=== PATIENT | female | born 1945 | race Hispanic/Latino ===

== ENCOUNTER 2018-05-24 16:16 | Inpatient (IN) | payer MEDICARE ==
[2018-05-24] MEDS ORDERED: Magnesium Hydroxide Susp 30 ml UD PO PRN (17:15)
[2018-05-24 19:05] VITALS: BMI 27.4
[2018-05-24] MEDS ORDERED: Pneumococcal 23-Valent Vaccine IM ONE (19:05)
[2018-05-25 07:53] LABS: MEAN CELL VOLUME 84.8 fl (80.0-105.0); MEAN CORPUSCULAR HEMOGLOBIN 27.8 pg (25.0-35.0); MEAN CORPUSCULAR HGB CONC 32.8 g/dl (31.0-37.0); MEAN PLATELET VOLUME 10.2 fl (7.0-11.0); RBC 3.95 10^6/uL (3.5-6.1); RED CELL DISTRIBUTION WIDTH 14.2 % (11.5-14.5); WHITE BLOOD COUNT 8.8 10^3/ul (4.5-11.0)
[2018-05-25 08:02] LABS: ALB/GLOB RATIO 1.1 (1.1-1.8); ALBUMIN 3.7 g/dL (3.0-4.8); ALT/SGPT 31 U/L (7-56); AST/SGOT 24 U/L (14-36); BLOOD UREA NITROGEN 20 mg/dL (7-21); GFR NON-AFRICAN AMERICAN > 60
--- NOTE | 2018-05-25 12:01 | CP.PCM.HP ---
<Rian Mcgarry - Last Filed: 05/25/18 11:58> History of Present Illness - History of Present Illness History of Present Illness: History and Physical for Dr. Hicks 72 year old female with past medical history of HTN presents from [facility] for physical therapy due to deconditioning. Patient recently had back surgery and will require physical therapy. At this time, patient states she feels minimal pain, but does have trouble ambulating. Patient denies chest pain, shortness of breath, nausea, vomiting, diarrhea, fever, chills, dysuria. PMH: As above Surgical Hx: Knee replacement, back surgery Family Hx: HTN Social Hx: Denies alcohol, tobacco, or illicit drug use Allergies: NKDA Meds: Reviewed, as per MAR Present on Admission - Present on Admission Any Indicators Present on Admission: No Review of Systems - Review of Systems Review of Systems: 12 point ROS as per HPI, otherwise negative Past Patient History - CARDIAC Hx Hypertension: Yes - PULMONARY Hx Respiratory Disorders: No - NEUROLOGICAL Hx Neurological Disorder: Yes (numbness left leg more than right) - HEENT Hx HEENT Problems: Yes Hx Cataracts: Yes (b/l cataract sx) - RENAL Hx Chronic Kidney Disease: No - ENDOCRINE/METABOLIC Hx Endocrine Disorders: No - HEMATOLOGICAL/ONCOLOGICAL Hx Blood Disorders: No - INTEGUMENTARY Hx Dermatological Problems: Yes Other/Comment: surgical incision to lowr back covered with dressing - MUSCULOSKELETAL/RHEUMATOLOGICAL Hx Arthritis: Yes (fingers and spine) - GASTROINTESTINAL Hx Gastrointestinal Disorders: Yes (bm since 05/18/18) - GENITOURINARY/GYNECOLOGICAL Hx Genitourinary Disorders: No - SURGICAL HISTORY Hx Surgeries: Yes Hx Hysterectomy: Yes (35 yrs ago) Hx Joint Replacement: Yes (b/l knee replacement) Other/Comment: decompressive laminectomy from L1 to S1 at [facility] dr barrientos Meds Allergies/Adverse Reactions: Allergies Allergy/AdvReac Type Severity Reaction Status Date / Time No Known Allergies Allergy Verified 07/10/15 10:58 Physical Exam - Constitutional Appears: Non-toxic, No Acute Distress - Head Exam Head Exam: ATRAUMATIC, NORMAL INSPECTION, NORMOCEPHALIC - Eye Exam Eye Exam: EOMI, Normal appearance - ENT Exam ENT Exam: Mucous Membranes Moist - Respiratory Exam Respiratory Exam: Clear to Auscultation Bilateral, NORMAL BREATHING PATTERN - Cardiovascular Exam Cardiovascular Exam: RRR, +S1, +S2 - GI/Abdominal Exam GI & Abdominal Exam: Normal Bowel Sounds, Soft. absent: Tenderness - Extremities Exam Extremities exam: Positive for: normal inspection - Neurological Exam Neurological exam: Alert, CN II-XII Intact, Oriented x3 - Psychiatric Exam Psychiatric exam: Normal Affect, Normal Mood - Skin Skin Exam: Intact, Normal Color, Warm Results - Vital Signs Recent Vital Signs: Last Vital Signs Temp 98.1 F 05/25/18 10:00 Pulse 83 05/25/18 10:00 Resp 18 05/25/18 10:00 BP 162/85 H 05/25/18 10:00 Pulse Ox 93 L 05/25/18 10:00 - Labs Result Diagrams: 05/25/18 07:30 05/25/18 07:30 Labs: Laboratory Results - last 24 hr 05/25/18 05/25/18 07:30 07:30 WBC 8.8 RBC 3.95 Hgb 11.0 L Hct 33.5 L MCV 84.8 MCH 27.8 MCHC 32.8 RDW 14.2 Plt Count 335 MPV 10.2 Sodium 141 Potassium 3.9 Chloride 102 Carbon Dioxide 27 Anion Gap 16 BUN 20 Creatinine 0.6 L Est GFR ( Amer) > 60 Est GFR (Non-Af Amer) > 60 Random Glucose 104 Calcium 9.0 Total Bilirubin 0.4 AST 24 ALT 31 Alkaline Phosphatase 69 Total Protein 7.0 Albumin 3.7 Globulin 3.3 Albumin/Globulin Ratio 1.1 Assessment & Plan - Assessment and Plan (Free Text) Plan: 1. Deconditioning 2. Back Surgery 3. HTN Patient will continue with strict physical therapy program. Patient will be monitored for any severe complications of back surgery. She will have her home medication regimen continued, along with adequate pain control. We will continue to monitor her closely. Malgorzata, PGY-3 <Moose Hicks - Last Filed: 05/25/18 19:42> Results - Vital Signs Recent Vital Signs: Last Vital Signs Temp 97.8 F 05/25/18 16:00 Pulse 91 H 05/25/18 16:00 Resp 18 05/25/18 16:00 BP 155/90 H 05/25/18 16:00 Pulse Ox 99 05/25/18 16:00 - Labs Result Diagrams: 05/25/18 07:30 05/25/18 07:30 Labs: Laboratory Results - last 24 hr 05/25/18 05/25/18 07:30 07:30 WBC 8.8 RBC 3.95 Hgb 11.0 L Hct 33.5 L MCV 84.8 MCH 27.8 MCHC 32.8 RDW 14.2 Plt Count 335 MPV 10.2 Sodium 141 Potassium 3.9 Chloride 102 Carbon Dioxide 27 Anion Gap 16 BUN 20 Creatinine 0.6 L Est GFR ( Amer) > 60 Est GFR (Non-Af Amer) > 60 Random Glucose 104 Calcium 9.0 Total Bilirubin 0.4 AST 24 ALT 31 Alkaline Phosphatase 69 Total Protein 7.0 Albumin 3.7 Globulin 3.3 Albumin/Globulin Ratio 1.1 Assessment & Plan - Assessment and Plan (Free Text) Plan: Pt seen and examined. I have reviewed the note of the medical insurance coding specialist and agree with it. I have discussed the assessment and plan with the resident. I have reviewed the patient's labs and medications. Pt with back surgery and now on TCU for rehab. BP is controlled. She is deconditioned and needs PT.
--- NOTE | 2018-05-26 11:33 | CP.PCM.PN ---
<Rian Mcgarry - Last Filed: 05/26/18 11:30> Subjective - Date & Time of Evaluation Date of Evaluation: 05/26/18 Time of Evaluation: 11:30 - Subjective Subjective: Patient seen and examined at bedside. Patient with no acute overnight events. Patient admits to no pain. Patient admits to numbness in her left leg, which has been present since surgery. Denies chest pain, shortness of breath, nausea, vomiting. Objective - Vital Signs/Intake and Output Vital Signs (last 24 hours): Temp Pulse Resp BP Pulse Ox 98.5 F 72 16 139/78 93 L 05/26/18 06:00 05/26/18 06:00 05/26/18 06:00 05/26/18 06:00 05/26/18 06:00 - Medications Medications: Current Medications Acetaminophen (Tylenol 325mg Tab) 650 mg PO Q4H PRN; Protocol PRN Reason: Fever >100.4 F Last Admin: 05/25/18 21:20 Dose: 650 mg Gabapentin (Neurontin) 100 mg PO BID [facility] PRN Reason: Protocol Last Admin: 05/26/18 09:33 Dose: 100 mg Magnesium Hydroxide (Milk Of Magnesia) 30 ml PO DAILY PRN; Protocol PRN Reason: Constipation Tramadol HCl (Ultram) 50 mg PO Q4H PRN; Protocol PRN Reason: Pain, moderate (4-7) Last Admin: 05/26/18 09:33 Dose: 50 mg Valsartan (Diovan) 320 mg PO DAILY [facility] PRN Reason: Protocol Last Admin: 05/26/18 10:33 Dose: 320 mg - Labs Labs: 05/25/18 07:30 05/25/18 07:30 - Constitutional Appears: Non-toxic, No Acute Distress - Head Exam Head Exam: ATRAUMATIC, NORMAL INSPECTION, NORMOCEPHALIC - ENT Exam ENT Exam: Mucous Membranes Moist, Normal Exam - Respiratory Exam Respiratory Exam: Clear to Ausculation Bilateral, NORMAL BREATHING PATTERN - Cardiovascular Exam Cardiovascular Exam: RRR, +S1, +S2 - GI/Abdominal Exam GI & Abdominal Exam: Soft, Normal Bowel Sounds. absent: Tenderness - Extremities Exam Extremities Exam: Normal Inspection - Neurological Exam Neurological Exam: Alert, Awake, Oriented x3 - Psychiatric Exam Psychiatric exam: Normal Affect, Normal Mood - Skin Skin Exam: Intact, Normal Color, Warm Assessment and Plan - Assessment and Plan (Free Text) Plan: 1. Deconditioning 2. Back Surgery 3. HTN Patient will continue with aggressive physical therapy program. Patient will be monitored for any severe complications of back surgery. She will have her home medication regimen continued, along with adequate pain control regimen. Patient has blood pressure well controlled at this time. We will continue to monitor her closely. Malgorzata, PGY-3 <Moose Hicks - Last Filed: 05/26/18 20:26> Objective - Vital Signs/Intake and Output Vital Signs (last 24 hours): Temp Pulse Resp BP Pulse Ox 98.5 F 72 16 139/78 93 L 05/26/18 06:00 05/26/18 06:00 05/26/18 06:00 05/26/18 06:00 05/26/18 06:00 - Medications Medications: Current Medications Acetaminophen (Tylenol 325mg Tab) 650 mg PO Q4H PRN; Protocol PRN Reason: Fever >100.4 F Last Admin: 05/26/18 12:11 Dose: 650 mg Gabapentin (Neurontin) 100 mg PO BID [facility] PRN Reason: Protocol Last Admin: 05/26/18 17:26 Dose: 100 mg Magnesium Hydroxide (Milk Of Magnesia) 30 ml PO DAILY PRN; Protocol PRN Reason: Constipation Oxycodone/Acetaminophen (Percocet 5/325 Mg Tab) 1 tab PO Q4H PRN; Protocol PRN Reason: Pain, severe (8-10) Stop: 05/29/18 14:26 Last Admin: 05/26/18 20:15 Dose: 1 tab Tramadol HCl (Ultram) 50 mg PO Q4H PRN; Protocol PRN Reason: Pain, moderate (4-7) Last Admin: 05/26/18 14:18 Dose: 50 mg Valsartan (Diovan) 320 mg PO DAILY [facility] PRN Reason: Protocol Last Admin: 05/26/18 10:33 Dose: 320 mg - Labs Labs: 05/25/18 07:30 05/25/18 07:30 Assessment and Plan - Assessment and Plan (Free Text) Plan: Pt seen and examined. I have reviewed the note of the lead medical technologist and agree with it. I have discussed the assessment and plan with the resident. I have reviewed the patient's labs and medications. Pt with back surgery and continues to have pain. She is getting PT. She will need better pain controlled. Pt will be placed on Percocet for moderate pain.
[2018-05-26] MEDS: Oxycodone/Acetaminophen 5/325 mg Tab PO PRN (20:15)
[2018-05-27] MEDS: Oxycodone/Acetaminophen 5/325 mg Tab PO PRN ×2 (09:24→21:04)
--- NOTE | 2018-05-27 10:01 | CP.PCM.PN ---
<Rian Mcgarry - Last Filed: 05/27/18 09:58> Subjective - Date & Time of Evaluation Date of Evaluation: 05/27/18 Time of Evaluation: 09:58 - Subjective Subjective: Patient seen and examined at bedside. Patient states she is doing well with minimal back pain. Admits to numbness in left leg. Denies chest pain, shortness of breath, nausea, vomiting, diarrhea, fever. Objective - Vital Signs/Intake and Output Vital Signs (last 24 hours): Temp Pulse Resp BP Pulse Ox 97.8 F 74 19 117/73 98 05/27/18 09:42 05/27/18 09:42 05/27/18 09:42 05/27/18 09:42 05/27/18 09:42 - Medications Medications: Current Medications Acetaminophen (Tylenol 325mg Tab) 650 mg PO Q4H PRN; Protocol PRN Reason: Fever >100.4 F Last Admin: 05/27/18 06:08 Dose: 650 mg Gabapentin (Neurontin) 100 mg PO BID [facility] PRN Reason: Protocol Last Admin: 05/27/18 09:25 Dose: 100 mg Magnesium Hydroxide (Milk Of Magnesia) 30 ml PO DAILY PRN; Protocol PRN Reason: Constipation Oxycodone/Acetaminophen (Percocet 5/325 Mg Tab) 1 tab PO Q4H PRN; Protocol PRN Reason: Pain, severe (8-10) Stop: 05/29/18 14:26 Last Admin: 05/27/18 09:24 Dose: 1 tab Tramadol HCl (Ultram) 50 mg PO Q4H PRN; Protocol PRN Reason: Pain, moderate (4-7) Last Admin: 05/26/18 14:18 Dose: 50 mg Valsartan (Diovan) 320 mg PO DAILY [facility] PRN Reason: Protocol Last Admin: 05/27/18 09:25 Dose: 320 mg - Labs Labs: 05/25/18 07:30 05/25/18 07:30 - Constitutional Appears: Non-toxic, No Acute Distress - Head Exam Head Exam: ATRAUMATIC, NORMAL INSPECTION, NORMOCEPHALIC - ENT Exam ENT Exam: Mucous Membranes Moist - Respiratory Exam Respiratory Exam: Clear to Ausculation Bilateral, NORMAL BREATHING PATTERN - Cardiovascular Exam Cardiovascular Exam: RRR, +S1, +S2 - GI/Abdominal Exam GI & Abdominal Exam: Soft, Normal Bowel Sounds. absent: Tenderness - Extremities Exam Extremities Exam: Normal Inspection. absent: Calf Tenderness, Pedal Edema - Neurological Exam Neurological Exam: Alert, Awake, CN II-XII Intact, Oriented x3 - Psychiatric Exam Psychiatric exam: Normal Affect, Normal Mood - Skin Skin Exam: Intact, Normal Color, Warm Assessment and Plan - Assessment and Plan (Free Text) Plan: 1. Deconditioning 2. Back Surgery 3. HTN Patient will continue physical therapy. Patient with better pain control on percocet. We will continue to monitor patient closely and continue current medical regimen. Will continue to monitor for any complications. Malgorzata, PGY-3 <Lucio Julian - Last Filed: 05/27/18 16:06> Objective - Vital Signs/Intake and Output Vital Signs (last 24 hours): Temp Pulse Resp BP Pulse Ox 97.8 F 74 19 117/73 98 05/27/18 09:42 05/27/18 09:42 05/27/18 09:42 05/27/18 09:42 05/27/18 09:42 - Medications Medications: Current Medications Acetaminophen (Tylenol 325mg Tab) 650 mg PO Q4H PRN; Protocol PRN Reason: Fever >100.4 F Last Admin: 05/27/18 06:08 Dose: 650 mg Gabapentin (Neurontin) 100 mg PO BID [facility] PRN Reason: Protocol Last Admin: 05/27/18 09:25 Dose: 100 mg Magnesium Hydroxide (Milk Of Magnesia) 30 ml PO DAILY PRN; Protocol PRN Reason: Constipation Oxycodone/Acetaminophen (Percocet 5/325 Mg Tab) 1 tab PO Q4H PRN; Protocol PRN Reason: Pain, severe (8-10) Stop: 05/29/18 14:26 Last Admin: 05/27/18 09:24 Dose: 1 tab Tramadol HCl (Ultram) 50 mg PO Q4H PRN; Protocol PRN Reason: Pain, moderate (4-7) Last Admin: 05/26/18 14:18 Dose: 50 mg Valsartan (Diovan) 320 mg PO DAILY [facility] PRN Reason: Protocol Last Admin: 05/27/18 09:25 Dose: 320 mg - Labs Labs: 05/25/18 07:30 05/25/18 07:30 Assessment and Plan - Assessment and Plan (Free Text) Plan: pt seen and examined d/w resident progress notes reviewed a, agreed with plan, continue PT
[2018-05-28] MEDS: Oxycodone/Acetaminophen 5/325 mg Tab PO PRN ×3 (04:20→17:43)
--- NOTE | 2018-05-28 09:22 | CP.PCM.PN ---
<Rian Mcgarry - Last Filed: 05/28/18 09:22> Subjective - Date & Time of Evaluation Date of Evaluation: 05/28/18 Time of Evaluation: 09:21 - Subjective Subjective: Patient seen and examined at bedside. Patient doing well with no acute events overnight. Admits to improvement in gait. Denies chest pain, shortness of breath , nausea, vomiting, diarrhea, fever, chills. Objective - Vital Signs/Intake and Output Vital Signs (last 24 hours): Temp Pulse Resp BP Pulse Ox 97.8 F 74 19 117/73 98 05/27/18 09:42 05/27/18 09:42 05/27/18 09:42 05/27/18 09:42 05/27/18 09:42 - Medications Medications: Current Medications Acetaminophen (Tylenol 325mg Tab) 650 mg PO Q4H PRN; Protocol PRN Reason: Fever >100.4 F Last Admin: 05/27/18 06:08 Dose: 650 mg Gabapentin (Neurontin) 100 mg PO BID [facility] PRN Reason: Protocol Last Admin: 05/27/18 17:09 Dose: 100 mg Magnesium Hydroxide (Milk Of Magnesia) 30 ml PO DAILY PRN; Protocol PRN Reason: Constipation Oxycodone/Acetaminophen (Percocet 5/325 Mg Tab) 1 tab PO Q4H PRN; Protocol PRN Reason: Pain, severe (8-10) Stop: 05/29/18 14:26 Last Admin: 05/28/18 04:20 Dose: 1 tab Tramadol HCl (Ultram) 50 mg PO Q4H PRN; Protocol PRN Reason: Pain, moderate (4-7) Last Admin: 05/26/18 14:18 Dose: 50 mg Valsartan (Diovan) 320 mg PO DAILY [facility] PRN Reason: Protocol Last Admin: 05/27/18 09:25 Dose: 320 mg - Labs Labs: 05/25/18 07:30 05/25/18 07:30 - Constitutional Appears: Non-toxic, No Acute Distress - Head Exam Head Exam: ATRAUMATIC, NORMAL INSPECTION, NORMOCEPHALIC - ENT Exam ENT Exam: Mucous Membranes Moist, Normal Exam - Respiratory Exam Respiratory Exam: Clear to Ausculation Bilateral, NORMAL BREATHING PATTERN - Cardiovascular Exam Cardiovascular Exam: RRR, +S1, +S2 - GI/Abdominal Exam GI & Abdominal Exam: Soft, Normal Bowel Sounds. absent: Tenderness - Extremities Exam Extremities Exam: Normal Inspection. absent: Calf Tenderness, Pedal Edema - Neurological Exam Neurological Exam: Alert, Awake, CN II-XII Intact, Oriented x3 - Psychiatric Exam Psychiatric exam: Normal Affect, Normal Mood - Skin Skin Exam: Intact, Normal Color, Warm Assessment and Plan - Assessment and Plan (Free Text) Plan: 1. Deconditioning 2. Back Surgery 3. HTN Patient will continue aggressive physical therapy. Patient will continue pain control with percocet. We will continue to monitor patient closely and continue current medical regimen. Will continue to monitor for any complications. Malgorzata, PGY-3 <Lucio Julian - Last Filed: 05/28/18 22:30> Objective - Vital Signs/Intake and Output Vital Signs (last 24 hours): Temp Pulse Resp BP Pulse Ox 98.2 F 81 18 145/70 96 05/28/18 16:00 05/28/18 16:24 05/28/18 16:00 05/28/18 16:00 05/28/18 16:24 - Medications Medications: Current Medications Acetaminophen (Tylenol 325mg Tab) 650 mg PO Q4H PRN; Protocol PRN Reason: Fever >100.4 F Last Admin: 05/27/18 06:08 Dose: 650 mg Gabapentin (Neurontin) 100 mg PO BID [facility] PRN Reason: Protocol Last Admin: 05/28/18 17:41 Dose: 100 mg Magnesium Hydroxide (Milk Of Magnesia) 30 ml PO DAILY PRN; Protocol PRN Reason: Constipation Oxycodone/Acetaminophen (Percocet 5/325 Mg Tab) 1 tab PO Q4H PRN; Protocol PRN Reason: Pain, severe (8-10) Stop: 05/29/18 14:26 Last Admin: 05/28/18 17:43 Dose: 1 tab Tramadol HCl (Ultram) 50 mg PO Q4H PRN; Protocol PRN Reason: Pain, moderate (4-7) Last Admin: 05/26/18 14:18 Dose: 50 mg Valsartan (Diovan) 320 mg PO DAILY [facility] PRN Reason: Protocol Last Admin: 05/28/18 09:55 Dose: 320 mg - Labs Labs: 05/25/18 07:30 05/25/18 07:30 Assessment and Plan - Assessment and Plan (Free Text) Assessment: slight erythema of wound,will start antibiotics,and request surgical f/up
[2018-05-29] MEDS: Oxycodone/Acetaminophen 5/325 mg Tab PO PRN (00:10)
[2018-05-29] MEDS: Cefpodoxime (Vantin) 200 mg Tab PO SCH ×2 (10:37→21:10)
--- NOTE | 2018-05-29 22:36 | PN ---
Copied To: Lucio Julian MD Attending MD: Lucio Julian MD DATE: 05/29/2018 SUBJECTIVE: The patient is a 72-year-old female who is seen and examined, sitting in chair, seems uncomfortable, came back from therapy, doing well. Complaining of soreness in the back. PHYSICAL EXAMINATION VITAL SIGNS: She is afebrile, pulse 81, respirations 18, blood pressure 109/62. LUNGS: Bilateral fair airflow. No rhonchi or crackle. HEART: S1 and S2 audible. ABDOMEN: Soft, nontender. No rebound. No guarding. NEUROLOGICAL: She is awake, alert, oriented, communicative, ambulatory. Her back wound was seen, slight erythema, complain of constipation. ASSESSMENT AND PLAN: 1. Status post spinal surgery. 2. Deconditioning, difficulty walking 3. Wound erythema. We will start the patient on Vantin, complain of constipation. Start her on some stool softener and continue physical therapy, We will follow the patient. Lucio Julian MD
[2018-05-30] MEDS: Cefpodoxime (Vantin) 200 mg Tab PO SCH ×2 (09:35→21:15)
[2018-05-30] MEDS: POLYETHYLENE GLYCOL 3350 17 GM/Dose PACKET PO SCH (09:36)
[2018-05-30 12:36] VITALS: TEMP 98.1
[2018-05-30] MEDS ORDERED: Magnesium Citrate Oral SOL (300 ml) PO ONE (17:00)
--- NOTE | 2018-05-30 17:43 | PN ---
Copied To: Lucio Julian MD Attending MD: Lucio Julian MD DATE: 05/30/2018 SUBJECTIVE: The patient is 72 years old, seen and examined, doing well in physical therapy. Complains of constipation, participating in therapy. No back pain. No neck pain. No shortness of breath. No fever. No chills. PHYSICAL EXAMINATION: VITAL SIGNS: She is afebrile, pulse 68, respiration 18, blood pressure 108/70. LUNGS: Bilateral good airflow. No rhonchi or crackle. HEART: S1 and S2 audible. ABDOMEN: Soft, nontender. No rebound. No guarding. NEUROLOGICAL: The patient is awake, alert, oriented, communicative. LABORATORY EXAMINATION: There is no new lab available today. ASSESSMENT: 1. Status post back surgery for severe spinal stenosis. 2. Hypertension. 3. Constipation. 4. Neuropathy. PLAN: Currently, the patient is on Vantin. We will give her magnesium citrate half a bottle. If she did not have bowel movement she will get another half and we will reevaluate the patient in a.m. Lucio Julian MD
[2018-05-31] MEDS: Cefpodoxime (Vantin) 200 mg Tab PO SCH ×2 (10:11→21:01)
[2018-05-31] MEDS: POLYETHYLENE GLYCOL 3350 17 GM/Dose PACKET PO SCH (10:12)
[2018-05-31 10:35] VITALS: BP 122/83; PULSE 102; RESP 16; O2SAT 99
[2018-05-31] MEDS ORDERED: Pantoprazole 40 mg EC Tab PO ONE (11:03)
[2018-05-31] MEDS: Oxycodone/Acetaminophen 5/325 mg Tab PO PRN (21:01)
--- NOTE | 2018-05-31 21:55 | PN ---
Copied To: Lucio Julian MD Attending MD: Lucio Julian MD DATE: 05/31/2018 SUBJECTIVE: The patient is 72 years old, seen and examined, sitting in chair, seems to be comfortable, complaining of left knee pain. No nausea or vomiting. No diarrhea. Participating in therapy. PHYSICAL EXAMINATION: VITAL SIGNS: The patient is afebrile, pulse 102, respirations 16, blood pressure 122/83. LUNGS: Bilateral good airflow. No rhonchi or crackle. HEART: S1 and S2 audible. ABDOMEN: Soft, nontender. No rebound. No guarding. NEUROLOGICAL: The patient is awake, alert, oriented, communicative. ASSESSMENT: 1. Left knee sprain. 2. Status post back surgery. 3. Status post bilateral knee replacement. 4. Hypertension. 5. Slight wound erythema, on current Vantin. PLAN: We will start her on Mobic for a few days and monitor her gait, monitor her vital signs. The patient is day #14 tomorrow. I requested nursing staff to reach out to neurosurgeon to remove dudley prior to discharge. The patient will be discharged. Lucio Julian MD
[2018-06-01] MEDS ORDERED: Pantoprazole 40 mg EC Tab PO SCH (06:00)
[2018-06-01] MEDS: Oxycodone/Acetaminophen 5/325 mg Tab PO PRN (09:19)
[2018-06-01] MEDS: POLYETHYLENE GLYCOL 3350 17 GM/Dose PACKET PO SCH (09:21)
[2018-06-01] MEDS: Cefpodoxime (Vantin) 200 mg Tab PO SCH (11:15)
--- NOTE | 2018-06-01 14:40 | CP.PCM.DIS ---
<Rian Mcgarry - Last Filed: 06/01/18 14:36> Provider - Provider Date of Admission: 05/24/18 16:16 Attending physician: Moose Hicks MD Primary care physician: Moose Hicks MD Time Spent in preparation of Discharge (in minutes): 45 Diagnosis - Discharge Diagnosis (1) HTN (hypertension) Status: Chronic (2) Back pain Status: Chronic (3) Previous back surgery Status: Acute Hospital Course - Lab Results Lab Results: Most Recent Lab Values WBC 8.8 10^3/ul (4.5-11.0) 05/25/18 07:30 RBC 3.95 10^6/uL (3.5-6.1) 05/25/18 07:30 Hgb 11.0 g/dL (12.0-16.0) L 05/25/18 07:30 Hct 33.5 % (36.0-48.0) L 05/25/18 07:30 MCV 84.8 fl (80.0-105.0) 05/25/18 07:30 MCH 27.8 pg (25.0-35.0) 05/25/18 07:30 MCHC 32.8 g/dl (31.0-37.0) 05/25/18 07:30 RDW 14.2 % (11.5-14.5) 05/25/18 07:30 Plt Count 335 10^3/uL (120.0-450.0) 05/25/18 07:30 MPV 10.2 fl (7.0-11.0) 05/25/18 07:30 Sodium 141 mmol/L (132-148) 05/25/18 07:30 Potassium 3.9 mmol/L (3.6-5.0) 05/25/18 07:30 Chloride 102 mmol/L (98-107) 05/25/18 07:30 Carbon Dioxide 27 mmol/L (21-33) 05/25/18 07:30 Anion Gap 16 (10-20) 05/25/18 07:30 BUN 20 mg/dL (7-21) 05/25/18 07:30 Creatinine 0.6 mg/dl (0.7-1.2) L 05/25/18 07:30 Est GFR ( Amer) > 60 05/25/18 07:30 Est GFR (Non-Af Amer) > 60 05/25/18 07:30 Random Glucose 104 mg/dL (70-110) 05/25/18 07:30 Calcium 9.0 mg/dL (8.4-10.5) 05/25/18 07:30 Total Bilirubin 0.4 mg/dL (0.2-1.3) 05/25/18 07:30 AST 24 U/L (14-36) 05/25/18 07:30 ALT 31 U/L (7-56) 05/25/18 07:30 Alkaline Phosphatase 69 U/L (38-126) 05/25/18 07:30 Total Protein 7.0 g/dL (5.8-8.3) 05/25/18 07:30 Albumin 3.7 g/dL (3.0-4.8) 05/25/18 07:30 Globulin 3.3 gm/dL 05/25/18 07:30 Albumin/Globulin Ratio 1.1 (1.1-1.8) 05/25/18 07:30 - Hospital Course Hospital Course: 72 year old female with past medical history of HTN presented to the hospital for rehab due to deconditioning. Patient underwent aggressive physical therapy in TCU. Patient admitted to occasional pain, but overall increase in her abilities. Patient had dudley from back incision removed. Incision appeared slightly eryhthematous, will give patient script for Vantin as outpatient. Patient will follow up with PMD in office. Discharge Exam - Head Exam Head Exam: ATRAUMATIC, NORMAL INSPECTION, NORMOCEPHALIC - ENT Exam ENT Exam: Mucous Membranes Moist - Respiratory Exam Respiratory Exam: Clear to PA & Lateral, NORMAL BREATHING PATTERN, UNREMARKABLE - Cardiovascular Exam Cardiovascular Exam: RRR, +S1, +S2 - GI/Abdominal Exam GI & Abdominal Exam: Normal Bowel Sounds, Soft. absent: Tenderness - Extremities Exam Additional comments: Trace b/l - Back Exam Additional comments: Erythema along surgical incision - Neurological Exam Neurological exam: Alert, CN II-XII Intact, Oriented x3 - Psychiatric Exam Psychiatric exam: Normal Affect, Normal Mood - Skin Skin Exam: Intact, Normal Color, Warm Discharge Plan - Follow Up Plan Condition: GOOD Disposition: HOME/ ROUTINE Instructions: Low Back Pain in Adults, Preventing Falls in the Older Adult, High Blood Pressure (DC), Laminectomy (DC) Referrals: Moose Hicks MD [Primary Care Provider] - <Lucio Julian - Last Filed: 06/01/18 21:46> Provider - Provider Date of Admission: 05/24/18 16:16 Attending physician: Moose Hicks MD Primary care physician: Moose Hicks MD Hospital Course - Lab Results Lab Results: Most Recent Lab Values WBC 8.8 10^3/ul (4.5-11.0) 05/25/18 07:30 RBC 3.95 10^6/uL (3.5-6.1) 05/25/18 07:30 Hgb 11.0 g/dL (12.0-16.0) L 05/25/18 07:30 Hct 33.5 % (36.0-48.0) L 05/25/18 07:30 MCV 84.8 fl (80.0-105.0) 05/25/18 07:30 MCH 27.8 pg (25.0-35.0) 05/25/18 07:30 MCHC 32.8 g/dl (31.0-37.0) 05/25/18 07:30 RDW 14.2 % (11.5-14.5) 05/25/18 07:30 Plt Count 335 10^3/uL (120.0-450.0) 05/25/18 07:30 MPV 10.2 fl (7.0-11.0) 05/25/18 07:30 Sodium 141 mmol/L (132-148) 05/25/18 07:30 Potassium 3.9 mmol/L (3.6-5.0) 05/25/18 07:30 Chloride 102 mmol/L (98-107) 05/25/18 07:30 Carbon Dioxide 27 mmol/L (21-33) 05/25/18 07:30 Anion Gap 16 (10-20) 05/25/18 07:30 BUN 20 mg/dL (7-21) 05/25/18 07:30 Creatinine 0.6 mg/dl (0.7-1.2) L 05/25/18 07:30 Est GFR ( Amer) > 60 05/25/18 07:30 Est GFR (Non-Af Amer) > 60 05/25/18 07:30 Random Glucose 104 mg/dL (70-110) 05/25/18 07:30 Calcium 9.0 mg/dL (8.4-10.5) 05/25/18 07:30 Total Bilirubin 0.4 mg/dL (0.2-1.3) 05/25/18 07:30 AST 24 U/L (14-36) 05/25/18 07:30 ALT 31 U/L (7-56) 05/25/18 07:30 Alkaline Phosphatase 69 U/L (38-126) 05/25/18 07:30 Total Protein 7.0 g/dL (5.8-8.3) 05/25/18 07:30 Albumin 3.7 g/dL (3.0-4.8) 05/25/18 07:30 Globulin 3.3 gm/dL 05/25/18 07:30 Albumin/Globulin Ratio 1.1 (1.1-1.8) 05/25/18 07:30
== END 2018-06-01 14:33 | disposition home health service (06) | DRG 556 ==
LOC: TRCU 16:16
PROVIDERS: ADMIT Internal Medicine Nephrology; ATTEND Internal Medicine Nephrology
PROC: F07Z9FZ Gait Training/Functional Ambulation Treatment using Assistive, Adaptive, Supportive or Protective Equipment (ICD-10-PCS; principal; 2018-05-26)
PROC: F07Z8FZ Transfer Training Treatment using Assistive, Adaptive, Supportive or Protective Equipment (ICD-10-PCS; 2018-05-26)
PROC: F07L6YZ Therapeutic Exercise Treatment of Musculoskeletal System - Lower Back / Lower Extremity using Other Equipment (ICD-10-PCS; 2018-05-26)
PROC: F08Z1FZ Dressing Techniques Treatment using Assistive, Adaptive, Supportive or Protective Equipment (ICD-10-PCS; 2018-05-27)
DX: R26.2 Difficulty in walking, not elsewhere classified (principal); Z47.89 Encounter for other orthopedic aftercare; M48.00 Spinal stenosis, site unspecified; I10 Essential (primary) hypertension; G62.9 Polyneuropathy, unspecified; K59.00 Constipation, unspecified; M25.562 Pain in left knee; Z96.653 Presence of artificial knee joint, bilateral

== ENCOUNTER 2018-10-25 12:15 | Outpatient (CLI) | payer MEDICARE | END 2018-10-25 12:16 | disposition home or self-care (01) | LOC: RAD 12:15 ==

== ENCOUNTER 2018-12-26 10:29 | Outpatient (CLI) | payer MEDICARE | END 2018-12-26 10:30 | disposition home or self-care (01) | LOC: RAD 10:29 ==